=== PATIENT | male | born 1990 | race Hispanic/Latino ===

== ENCOUNTER 2022-12-23 08:52 | Emergency (ER) | payer OTHER ==
[~2022-12-23] VITALS: Ht 157.5 cm; Wt 75.0 kg
[2022-12-23 09:05] VITALS: BP 170/108
[2022-12-23 11:01] VITALS: BP 161/104
[2022-12-23 12:10] VITALS: BP 161/104
== END 2022-12-23 11:30 | disposition short-term general hospital (02) | DRG 999 ==
LOC: ED 08:52
PROC: 2W3CX1Z Immobilization of Right Lower Arm using Splint (ICD-10-PCS; principal; 2022-12-23)
DX: S06.4X0A Epidural hemorrhage without loss of consciousness, initial encounter (principal); S52.501A Unspecified fracture of the lower end of right radius, initial encounter for closed fracture; S52.502A Unspecified fracture of the lower end of left radius, initial encounter for closed fracture; S02.85XA Fracture of orbit, unspecified, initial encounter for closed fracture; S01.01XA Laceration without foreign body of scalp, initial encounter; S02.19XA Other fracture of base of skull, initial encounter for closed fracture; W17.89XA Other fall from one level to another, initial encounter; Y99.0 Civilian activity done for income or pay